=== PATIENT | male | born 1985 | race Caucasian/White ===

== ENCOUNTER 2022-10-24 16:55 | Outpatient (CLI) | payer OTHER, SELFPAY ==
--- NOTE | ~2022-10-24 | MR_ITS ---
EXAMINATION: MR hand RT wo con DATE: 10/24/2022 17:37 INDICATION: Pain and lump of 2 months duration at the right third finger. TECHNIQUE: Magnetic resonance imaging (MRI) of the right hand was performed without intravenous contr ast to include the metacarpals and digits. Sequences included sagittal, coronal, and axial T1-weighte d FSE and T2-weighted FS FSE and axial and coronal fluid sensitive FSE STIR. COMPARISON: None FINDINGS: Bone alignment is normal at the right hand. Normal marrow signal throughout with no reactive edema, f racture or pathologic marrow replacing process. Joint spaces appear relatively preserved throughout. The collateral ligament complex at the metacarpophalangeal and interphalangeal joints appear normal a lthough assessment is more limited on the large [id number] images encompassing the entire right holm nd. The flexor and extensor tendons are normal with no associated tenosynovitis. 8 x 7 x 4 mm homogen eously T2 hyperintense likely ganglion cyst along the ulnar aspect of the flexor tendons of the third digit at the level of the mid diaphysis of the third proximal phalanx. This underlies the marker ind icating the palpable lump of concern. There are a couple additional ganglion cysts at the wrist and c arpus. This includes one arising dorsally from the radial side of the wrist joint measuring 11 x 11 x 4 mm and a second measuring 9 x 11 x 9 mm positioned palmar to the ulnar styloid process which appea rs to arise from the pisotriquetral joint. IMPRESSION: 1. 3 homogeneously T2 hyperintense lesions likely representing ganglion cysts at the right hand and w rist as detailed above, one of which measures 8 x 7 x 4 mm along the ulnar side of the right third pr oximal phalanx appears to represent the palpable lump of concern. Reviewed, dictated and finalized at location A. E COLLECTOR IMPRESSION: 1. 3 homogeneously T2 hyperintense lesions likely representing ganglion cysts a t the right hand and wrist as detailed above, one of which measures 8 x 7 x 4 m m along the ulnar side of the right third proximal phalanx appears to represent the palpable lump of concern.
== END 2022-10-24 16:56 ==
LOC: MICIMG 16:56
PROVIDERS: PCP Nurse Practitioner; Visit Provider Nurse Practitioner
DX: M79.644 Pain in right finger(s) (principal)
CPT/HCPCS: 73218

== ENCOUNTER 2022-12-26 08:40 | Outpatient (CLI) | payer OTHER, SELFPAY ==
--- NOTE | 2022-12-26 11:00 | NEURO_ITS ---
Impression: # Complains of numbness and pain of hands. # Early Carpal Tunnel Syndrome bilaterally. # No ulnar neuropathy. # Normal needle/EMG exam. Motor Nerve Conduction Upper Extremities Median Nerve Conduction Velocity (m/sec) Terminal Latency (msec) Response Voltage(mV) Elbow-Wrist Wrist Elbow Wrist Right 57 3.8 2 3 Left 55 4.1 1 1 Ulnar Nerve Conduction Velocity (m/sec) Terminal Latency (msec) Response Voltage(mV) Above Elbow Below Elbow Wrist Above Elbow Below Elbow Wrist Right 59 2.7 5 5 Left 60 2.7 6 6 F-Wave Latency Median (ms) Ulnar (ms) Right 30.1 29.4 Left 31.1 29.9 Sensory Nerve Conduction Upper Extremities Median Nerve Stimulation Terminal Latency (msec) Wrist/Digit Response Voltage (uV) Wrist Right 3.4/3.4 34/48 Left 3.7/3.8 21/26 Ulnar Nerve Stimulation Terminal Latency (msec) Wrist/Digit Response Voltage (uV) Wrist Right 2.4 65 Left 2.5 33 Radial Nerve Terminal Latency (msec) Response Voltage(mV) Right 1.8 25 Left 2.0 27 Left Right Muscles Examined Fibrillation Fasciculation Scarcity Voltage Duration Left Right Left Right Left Right Left Right Left Right Deltoid Biceps X X Brachioradialis Triceps X X Pronator Teres X X Ext Indicis X X Ext Digitorum X X Abd Poll Brev X X 1st Dorsal Interosseus X X Abd Dig Min MTDD
== END 2022-12-26 08:41 | disposition home or self-care (01) ==
PROVIDERS: Visit Provider Nurse Practitioner
DX: R20.2 Paresthesia of skin (principal)
CPT/HCPCS: 95886; 95911

== ENCOUNTER 2025-05-25 09:02 | Emergency (ER) | payer OTHER, SELFPAY ==
--- NOTE | ~2025-05-25 | XR_ITS ---
EXAM/ PROCEDURE: XR ankle RT min 3V - 05/25/2025 9:22 CDT HISTORY: 40 years old Male with hit Rt ankle with hammer, tenderness lateral aspect COMPARISON: None available TECHNIQUE: Four view(s) FINDINGS/ IMPRESSION: There are no fractures or dislocations.Joint spaces are within normal limits. Reviewed, dictated and finalized at location A.
[2025-05-25 09:15] VITALS: BP 150/90; PULSE 84; RESP 16; TEMP 36.5; O2SAT 100
--- NOTE | 2025-05-25 09:17 | ED_ITS ---
HPI - Extremity Injury (Lower) General Chief Complaint: Extremity Injury, Lower Stated Complaint: R ANKLE INJURY Time Seen by Provider: 05/25/25 09:17 Source: patient Mode of arrival: ambulatory Limitations: no limitations History of Present Illness HPI Narrative: 40 yo M presents with pain to R ankle for 1 day. Was bending over hammer concrete forms and hit himself to lateral aspect R ankle with hammer. Ambulatory with limp. no deformity noted. All systems reviewed and negative except as noted above. Related Data Home Medications ?Medication ?Instructions ?Recorded ?Confirmed ?Last Taken ?Type No Home Medications 10/02/22 05/25/25 Unknown History Allergies Allergy/AdvReac Type Severity Reaction Status Date / Time cefaclor (From Ceclor) Allergy Intermediate Hives Verified 05/25/25 09:12 cefixime (From Suprax) Allergy Intermediate Hives Verified 05/25/25 09:12 cefpodoxime (From Vantin) Allergy Intermediate Hives Verified 05/25/25 09:12 Cephalosporins Allergy Intermediate Hives Verified 05/25/25 09:12 morphine Allergy Intermediate Hives Verified 05/25/25 09:12 Penicillins Allergy Intermediate Hives Verified 05/25/25 09:12 sulfamethoxazole Allergy Mild Unknown Verified 05/25/25 09:12 trimethoprim Allergy Mild Unknown Verified 05/25/25 09:12 amoxicillin Allergy Hives Verified 05/25/25 09:12 Review of Systems Review of Systems: CONSTITUTIONAL: Denies fever, chills, or sweats. EYES: Denies visual changes, redness, or discharge. ENT: Denies rhinorrhea, congestion, sore throat, or otalgia. CARDIOVASCULAR: Denies chest pain, palpitations, or edema. RESPIRATORY: Denies cough or dyspnea. GASTROINTESTINAL: Denies abdominal pain, nausea, vomiting, or diarrhea. GENITOURINARY: Denies dysuria or hematuria. SKIN: Denies rash or itching. MUSCULOSKELETAL: Denies back pain, joint pain, or myalgia. reports pain to R ankle NEUROLOGIC: Denies headache, numbness, or weakness. PSYCHIATRIC: Denies anxiety or depression. All other systems reviewed are negative, except as documented in HPI. [facility] Past Medical History Medical History Allergies Dysplastic kidney Surgical History Surgical History History of placement of ear tubes [place] teeth removed Family History Family History Grandparent Diabetes mellitus Social History Social History Smoking status: Never smoker Alcohol intake: former Substance use: current Substance use type: marijuana Living arrangements: with family Occupation/Education: occupation Additional occupation/education comments: construction Comments At time of signature, agree with nursing past medical, surgical, social and family history. There is no relevant family history pertinent to the presenting complaint. Exam Narrative: GENERAL: This is a well-nourished, well-developed patient, in no apparent distress. HEAD: normocephalic, atraumatic. EYES: PERRL. Sclera clear/white. Vision is grossly intact. EARS: External ears normal NOSE: External nose normal NECK: Neck supple, non-tender without lymphadenopathy, masses or thyromegaly. CARDIOVASCULAR: Regular rate and rhythm without murmurs, gallops, or rubs. RESPIRATORY: Clear to auscultation. Breath sounds equal bilaterally. No wheezes, rales, or rhonchi. SKIN: warm, Dry, intact with no suspicious lesions or rash, good texture and turgor. NEURO: awake, alert, and oriented to person, place and time. There were no obvious focal neurologic abnormalities. EXTREMITIES: mild swelling to lateral aspect R ankle with bruising. no deformity. distal NV Intact. ROM intact. Course Course Level of Care: Express Care Visit Vital Signs Vital signs: Vital Signs Temperature 36.5 C 05/25/25 09:15 Pulse Rate 84 05/25/25 09:15 Respiratory Rate 16 05/25/25 09:15 Blood Pressure 150/90 H 05/25/25 09:15 Pulse Oximetry 100 05/25/25 09:15 Temperature 36.5 C 05/25/25 09:15 Pulse Rate 84 05/25/25 09:15 Respiratory Rate 16 05/25/25 09:15 Blood Pressure 150/90 H 05/25/25 09:15 Pulse Oximetry 100 05/25/25 09:15 Reviewed MDM - Extremity Injury (Lower) MDM Narrative Medical decision making narrative: x-ray of right ankle normal. Discussed results with patient. Branden wrap placed. Recommend rest, ice, ibuprofen. Imaging Data My impression: agree with radiologist Radiologist's impression: XAM/ PROCEDURE: XR ankle RT min 3V - 05/25/2025 9:22 CDT HISTORY: 40 years old Male with hit Rt ankle with hammer, tenderness lateral aspect COMPARISON: None available TECHNIQUE: Four view(s) FINDINGS/ IMPRESSION: There are no fractures or dislocations.Joint spaces are within normal limits. Discharge Plan Discharge Clinical Impression: Contusion of ankle, right Patient Disposition: Home Condition: Stable Instructions: Contusion in Adults (ED) Additional Instructions: The x-ray of your right ankle was negative for fracture. Take ibuprofen or Tylenol every 6-8 hours as needed for pain. Apply ice as needed for pain. Elevate when at rest. Follow-up with your primary care physician if pain is not improving. Patient Language: Korean Prescriptions: No Action No Home Medications Follow-up/Referrals: PHYSICIAN,GROUP ROOMS COORDINATOR [Primary Care Provider] - Stand Alone Forms: Work/School Release IP Time of Disposition: 10:02
== END 2025-05-25 10:04 | disposition home or self-care (01) ==
PROVIDERS: Emergency Provider Nurse Practitioner Family
DX: S90.01XA Contusion of right ankle, initial encounter (principal); W27.8XXA Contact with other nonpowered hand tool, initial encounter; Q61.4 Renal dysplasia; F12.90 Cannabis use, unspecified, uncomplicated
CPT/HCPCS: 73610; 99213; G0463